=== PATIENT | male | born 1940 | race Caucasian/White ===

== ENCOUNTER 2016-11-20 22:35 | Emergency (ER) | payer MEDICARE, MEDICAID ==
[~2016-11-20] VITALS: Ht 175.3 cm; Wt 77.1 kg
[~2016-11-20 22:35] MED LIST: CHOL; HYZAAR PO
[2016-11-20] MEDS ORDERED: AMLO5TAB4 PO (23:35)
[2016-11-20] MEDS ORDERED: DOXA4TAB2 PO (23:35)
[2016-11-20] MEDS ORDERED: LOSA25TA3 PO (23:35)
[2016-11-20] MEDS ORDERED: FENO134C PO (23:35)
[2016-11-20] MEDS ORDERED: FINA5TAB3 PO (23:35)
[2016-11-20] MEDS ORDERED: LOSA50TA21 PO (23:35)
[2016-11-20] MEDS ORDERED: SUNI50CA PO (23:35)
[2016-11-20] MEDS ORDERED: FOLI1TAB16 PO (23:35)
[2016-11-20] MEDS ORDERED: BICA50TA2 PO (23:35)
[2016-11-20] MEDS ORDERED: ALLO100T PO (23:35)
[2016-11-21] MEDS ORDERED: KETOROLAC TROMETHAMINE 15 MG INJ IV ONE (00:30)
--- NOTE | 2016-11-21 00:30 | NUR ---
Pt ambulated to room with limp favoring right leg. Pt c/o lower back pain radiating down right leg for approx 1 wk getting progressively worse. Pt resting in position of comfort for self. Pt seen by MD, awaiting further orders.
[2016-11-21 00:43] LABS: BASOPHILS % (AUTO) 0.6 % (0.0-2.0); EOSINOPHILS # (AUTO) 0.2 K/uL (0.0-0.7); EOSINOPHILS % (AUTO) 6.3 % (0.0-7.0); HEMATOCRIT 27.8 % (40-50); HEMOGLOBIN 9.3 G/DL (14.0-18.0); LYMPHOCYTES # (AUTO) 1.2 K/UL (0.8-4.8); LYMPHOCYTES % (AUTO) 51.9 % (20.5-51.5); MEAN CORPUSCULAR HEMOGLOBIN 34.4 UUG (27.0-31.0); MEAN CORPUSCULAR HGB CONC 33 g/dL (32.0-37.0); MEAN CORPUSCULAR VOLUME 102.9 FL (82.0-92.0); MONOCYTES # (AUTO) 0.5 K/UL (0.1-1.30); MONOCYTES % (AUTO) 18.9 % (0.0-11.0); NEUTROPHILS # (AUTO) 0.5 K/UL (1.8-8.9); NEUTROPHILS % (AUTO) 22.3 % (38.5-71.5); PLATELET COUNT (AUTO) 192 K/UL (150-450); WHITE BLOOD COUNT (AUTO) 2.4 K/UL (4.0-11.2)
[2016-11-21 00:48] LABS: CARBON DIOXIDE 28 mmol/L (21-32); CHLORIDE 106 mmol/L (98-107); CREATININE 1.2 mg/dL (0.6-1.3); GLUCOSE 110 mg/dL (74-106); POTASSIUM 3.9 mmol/L (3.5-5.1); UREA NITROGEN, BLOOD 21 mg/dL (7-18)
--- NOTE | 2016-11-21 00:55 | NUR ---
IV established, labs drawn and sent. Pt medicated for pain, will monitor for effects of medication.
[2016-11-21 01:00] LABS: ALANINE AMINOTRANSFERASE 24 U/L (16-63); ALKALINE PHOSPHATASE 44 U/L (50-136); ASPARTATE AMINOTRANSFERASE 28 U/L (15-37); BILIRUBIN,DIRECT 0.1 mg/dL (0.0-0.2); BILIRUBIN,TOTAL 0.3 mg/dL (0.2-1.0); EOSINOPHILS % (MANUAL) 9 % (0-8); LYMPHOCYTES % (MANUAL) 57 % (20-40); MONOCYTES % (MANUAL) 8 % (2-10); NEUTROPHILS % (MANUAL) 26 % (42-75); TOTAL PROTEIN, SERUM 6.6 g/dL (6.4-8.2)
[2016-11-21] MEDS ORDERED: KETOROLAC TROMETHAMINE 15 MG INJ ONE (01:01)
[2016-11-21] MEDS ORDERED: MORPHINE SULFATE 4 MG/1 ML DISP.SYRIN IV ONE (01:15)
[2016-11-21] MEDS ORDERED: ONDANSETRON 4 MG/2 ML VIAL IV ONE (01:15)
--- NOTE | 2016-11-21 01:35 | NUR ---
Pt ambulated to and from br with limping gait. Pt sts no change in pain with previous medication. MD notified and pt medicated. Will monitor for effects of medication. Pt repositioned for comfort.
[2016-11-21] MEDS ORDERED: MORPHINE SULFATE 4 MG/1 ML DISP.SYRIN ONE (01:36)
[2016-11-21] MEDS ORDERED: ONDANSETRON 4 MG/2 ML VIAL ONE (01:36)
--- NOTE | 2016-11-21 02:09 | NUR ---
Pt sts pain improved with medication. Pt resting in position of comfort for self. Awaiting radiology.
--- NOTE | 2016-11-21 02:20 | NUR ---
Pt to radiology via [facility]
--- NOTE | 2016-11-21 02:38 | NUR ---
Pt returned from radiology via [facility]
--- NOTE | 2016-11-21 04:36 | NUR ---
Pt sts he is feeling better. Pt stable for discharge per Md. IV dc'd, catheter intact. Drsg applied. No problems noted to site. Pt given ACI. PT verbalized understanding of dc instructions. Pt ambulated out of ER with steady gait and [employer] and [employer] bus [employer] home with all his belongings.
[2016-11-21 04:37] VITALS: BP 126/70
== END 2016-11-21 04:37 | disposition home or self-care (01) ==
LOC: ER 22:36
DX: M54.16 Radiculopathy, lumbar region (principal); I10 Essential (primary) hypertension; Z85.46 Personal history of malignant neoplasm of prostate; Z85.528 Personal history of other malignant neoplasm of kidney; C78.7 Secondary malignant neoplasm of liver and intrahepatic bile duct; N20.0 Calculus of kidney
CPT/HCPCS: 36415; 71010; 72131; 73551; 80048; 80076; 84484; 85025; 85730; 93005; 96374; 96375; 99285; A4663; J1885; J2270; J2405; 70030-TC

== ENCOUNTER 2022-05-21 01:55 | Inpatient (IN) | END 2022-05-22 11:40 | disposition home or self-care (01) | DRG 179 | DX: J15.6 Pneumonia due to other Gram-negative bacteria (principal); E78.5 Hyperlipidemia, unspecified; E86.0 Dehydration; D50.9 Iron deficiency anemia, unspecified; Z79.82 Long term (current) use of aspirin; Z85.46 Personal history of malignant neoplasm of prostate; Z87.891 Personal history of nicotine dependence; I10 Essential (primary) hypertension; D64.9 Anemia, unspecified; Z85.528 Personal history of other malignant neoplasm of kidney; Z90.5 Acquired absence of kidney ==

== ENCOUNTER 2022-10-25 16:54 | Emergency (ER) | payer MEDICARE, OTHER ==
[~2022-10-25] VITALS: Ht 175.3 cm; Wt 77.6 kg
[~2022-10-25 16:54] MED LIST changes: +ALLO100T PO; +AMLO10TA59 PO; +AMOX-430 PO; +AZIT1PAC9 PO; +BENZ-13 PO; -CHOL; +CYAN-51 PO; +DOXA4TAB2 PO; +EZET10TA15 PO; +FINA5TAB3 PO; +FOLI1TAB94 PO; +GABA-532 PO; -HYZAAR PO; +ICOS1CAP PO; +LEVO50TA8 PO; +LORA10TA7 PO; +MAGN400C PO; +metoprolol PO
== END 2022-10-25 17:32 | disposition home or self-care (01) ==
LOC: ER 16:54
DX: Z46.6 Encounter for fitting and adjustment of urinary device (principal); I10 Essential (primary) hypertension; Z79.2 Long term (current) use of antibiotics; Z79.899 Other long term (current) drug therapy
CPT/HCPCS: A4663